=== PATIENT | female | born 1990 | race African-American/Black ===

== ENCOUNTER 2017-02-07 14:48 | Emergency (ER) | payer OTHER ==
[~2017-02-07] VITALS: Ht 165.1 cm; Wt 68.0 kg
[2017-02-07 15:39] VITALS: BP_SYST 128
--- NOTE | 2017-02-07 15:48 | NUR ---
Pt complains of pain to lower abdomen that radiates up to the left flank since Monday. Pt states she had called her OBGYN and told her about the pain, and was recommended to visit ER. Pt states the pain had gotten worse throughout the week and today she was feeling nauseous and vomited x 2. Pt denies fever. No other injuries/complaints per patient or noted.
--- NOTE | 2017-02-07 16:00 | NUR ---
Pt was placed in waiting room, awaiting results from LAB and Radiology. Pt in stable condition. Report given to Triage Nurse. All care endorsed to Triage nurse.
[2017-02-07 16:03] LABS: BILIRUBIN,URINE NEGATIVE (NEGATIVE); BLOOD, URINE 2+ (NEGATIVE); CLARITY/URINE CLEAR (CLEAR); COLOR,URINE YELLOW (YELLOW); GLUCOSE,URINE NEGATIVE (NEGATIVE); KETONES,URINE 3+ (NEGATIVE); LEUKOCYTE ESTERASE ,URINE NEGATIVE (NEGATIVE); NITRITE, URINE NEGATIVE (NEGATIVE); PROTEIN URINE TRACE (NEGATIVE); UROBILINOGEN,URINE 0.2 (0.2-1.0)
[2017-02-07 16:04] LABS: BASOPHILS % (AUTO) 0.7 % (0.0-2.0); EOSINOPHILS # (AUTO) 0.1 K/uL (0.0-0.4); EOSINOPHILS % (AUTO) 1.6 % (0.0-4.0); HEMATOCRIT 38.2 % (36-48); HEMOGLOBIN 12.1 g/dL (12.0-16.0); LYMPHOCYTES % (AUTO) 29.6 % (20.5-51.5); MEAN CORPUSCULAR HEMOGLOBIN 26 pg (27-31); MEAN CORPUSCULAR HGB CONC 32 % (32-36); MEAN CORPUSCULAR VOLUME 83 fL (79.0-98.0); MONOCYTES # (AUTO) 0.6 K/uL (0.0-1.0); MONOCYTES % (AUTO) 8.6 % (1.7-9.3); NEUTROPHILS # (AUTO) 4.1 K/uL (1.8-7.7); NEUTROPHILS % (AUTO) 59.5 % (40.0-70.0); PLATELET COUNT (AUTO) 255 K/uL (130-430); RED BLOOD CELL COUNT(AUTO) 4.63 MIL/uL (4.2-6.2); RED CELL DISTRIBUTION WIDTH 14.5 % (9.0-15.0); WHITE BLOOD COUNT (AUTO) 6.8 K/uL (4.8-10.8)
[2017-02-07 16:18] LABS: CALCIUM 9.6 mg/dL (8.4-11.0); CREATININE 0.65 mg/dL (0.55-1.30); POTASSIUM 3.6 mmol/L (3.5-5.1)
[2017-02-07 16:23] LABS: TOTAL BILIRUBIN 0.3 mg/dL (0.0-1.0)
[2017-02-07 16:51] LABS: BACTERIA,URINE FEW /HPF (None Seen); RBC,URINE 20-50 /HPF (0-3); WBC,URINE 0-3 /HPF (0-3)
--- NOTE | 2017-02-07 17:30 | NUR ---
Returned from ultrasound awaiting reports denies complaints at this time
--- NOTE | 2017-02-07 18:00 | NUR ---
No s/s of distress at this time awaiting MD foss family with patient denies complaints at this time
--- NOTE | 2017-02-07 20:00 | NUR ---
Patient to ER bed 7 to gown for evaluation. Side rails up. Report given to Meño LOBATO.
--- NOTE | 2017-02-07 20:10 | NUR ---
Pt states that she has had abd pain that radiates to left flank for about a week. Pt has nausea and vomitting. Will continue to monitor. No distress noted.
[2017-02-07 20:41] VITALS: BP_SYST 124
--- NOTE | 2017-02-07 20:41 | NUR ---
Patient given written and verbal discharge instructions and verbalizes understanding. ER MD discussed with patient the results and treatment provided. Patient in stable condition. ID arm band removed. Rx of Zofran and Macrobid given. Patient educated on pain management and to follow up with PMD. Pain Scale 0/10. Opportunity for questions provided and answered.
== END 2017-02-07 20:41 | disposition home or self-care (01) ==
LOC: SED 14:48
DX: O23.41 Unspecified infection of urinary tract in pregnancy, first trimester (principal); Z3A.08 8 weeks gestation of pregnancy; Z90.49 Acquired absence of other specified parts of digestive tract
CPT/HCPCS: 36415; 76700-TC; 76801; 76817; 80053; 81000-TC; 81025; 84702-TC; 85025; 86901; 99285

== ENCOUNTER 2017-09-08 12:30 | Inpatient (IN) | payer OTHER ==
[~2017-09-08] VITALS: Ht 165.1 cm; Wt 87.1 kg
[2017-09-08] MEDS: LR 1,000 ML IV SCH (07:00)
[2017-09-08] MEDS ORDERED: LR 1,000 ML IV ONE (13:19)
[2017-09-08] MEDS ORDERED: TERBUTALINE SULFATE 1 MG/ML VIAL SUBCUT ONE (13:40)
[2017-09-08] MEDS ORDERED: TERBUTALINE SULFATE 1 MG/ML VIAL ONE (13:42)
[2017-09-08] MEDS ORDERED: CEFAZOLIN 2 GM IVPB PREMIX 50 ML IV ONE ×2 (14:00)
[2017-09-08] MEDS ORDERED: LR 1,000 ML IV.SOLN IV ONE (14:00)
[2017-09-08] MEDS ORDERED: NS IRRIG SOLN 1000 ML IR ONE (14:00)
[2017-09-08] MEDS ORDERED: BUPIVACAINE /DEX PF 0.75% SPINAL 2 ML AMP INJ ONE (14:00)
[2017-09-08] MEDS ORDERED: ONDANSETRON HCL 4 MG/2 ML VIAL IVP ONE (14:00)
[2017-09-08] MEDS ORDERED: OXYTOCIN 10 UNIT/ML VIAL IV ONE (14:00)
[2017-09-08] MEDS ORDERED: MORPHINE SULFATE 10MG/10ML PF AMP EP ONE (14:00)
[2017-09-08 14:23] LABS: BILIRUBIN,URINE NEGATIVE (NEGATIVE); BLOOD, URINE 2+ (NEGATIVE); CLARITY/URINE CLEAR (CLEAR); COLOR,URINE YELLOW (YELLOW); GLUCOSE,URINE NEGATIVE (NEGATIVE); KETONES,URINE NEGATIVE (NEGATIVE); LEUKOCYTE ESTERASE ,URINE TRACE (NEGATIVE); NITRITE, URINE NEGATIVE (NEGATIVE); PH,URINE 7.5 (5.0-8.0); PROTEIN URINE NEGATIVE (NEGATIVE); UROBILINOGEN,URINE 0.2 (0.2-1.0)
[2017-09-08 14:37] LABS: BASOPHILS % (AUTO) 0.6 % (0.0-2.0); EOSINOPHILS # (AUTO) 0.1 K/uL (0.0-0.4); EOSINOPHILS % (AUTO) 0.7 % (0.0-4.0); HEMATOCRIT 38.1 % (36-48); HEMOGLOBIN 12.5 g/dL (12.0-16.0); LYMPHOCYTES # (AUTO) 2.1 K/uL (1.0-5.5); LYMPHOCYTES % (AUTO) 25.5 % (20.5-51.5); MEAN CORPUSCULAR HEMOGLOBIN 29 pg (27-31); MEAN CORPUSCULAR HGB CONC 33 % (32-36); MEAN CORPUSCULAR VOLUME 87 fL (79.0-98.0); MONOCYTES # (AUTO) 0.6 K/uL (0.0-1.0); MONOCYTES % (AUTO) 7.5 % (1.7-9.3); NEUTROPHILS # (AUTO) 5.4 K/uL (1.8-7.7); NEUTROPHILS % (AUTO) 65.7 % (40.0-70.0); PLATELET COUNT (AUTO) 151 K/uL (130-430); RED BLOOD CELL COUNT(AUTO) 4.36 MIL/uL (4.2-6.2); RED CELL DISTRIBUTION WIDTH 12.9 % (9.0-15.0); WHITE BLOOD COUNT (AUTO) 8.2 K/uL (4.8-10.8)
[2017-09-08 14:45] LABS: BACTERIA,URINE FEW /HPF (None Seen); RBC,URINE 0-3 /HPF (0-3); WBC,URINE 0-3 /HPF (0-3)
[2017-09-08 14:46] LABS: MUCUS,URINE None Seen /LPF (None Seen)
[2017-09-08] MEDS ORDERED: NALOXONE HCL 1 MG in NACL 0.9% 1,000 ML IV PRN ×4 (15:03)
[2017-09-08] MEDS ORDERED: LR 1,000 ML IV SCH (15:03)
[2017-09-08] MEDS ORDERED: HYDROmorphone 1 MG INJ. 1 MG/ML AMPUL IVP PRN (15:15)
[2017-09-08] MEDS ORDERED: KETOROLAC TROMETHAMINE 60 MG/2 ML VIAL IM PRN (15:15)
[2017-09-08] MEDS ORDERED: DIPHENHYDRAMINE HCL 50 MG CAPSULE PO PRN (15:15)
[2017-09-08] MEDS ORDERED: ONDANSETRON HCL 4 MG/2 ML VIAL IVP PRN (15:15)
[2017-09-08] MEDS ORDERED: NALOXONE HCL 0.4 MG/ML AMP (NARCAN) IVP PRN ×3 (15:15)
[2017-09-08] MEDS ORDERED: DIPHENHYDRAMINE INJ 50 MG/ML VIAL IVP PRN (15:15)
[2017-09-08] MEDS ORDERED: MEPERIDINE HCL/PF 25 MG/ML DISP.SYRIN IVP PRN ×2 (15:15)
[2017-09-08] MEDS ORDERED: HYDROmorphone 2 MG/ML VIAL IVP PRN ×2 (15:15)
[2017-09-08] MEDS ORDERED: OXYTOCIN/0.9 % SODIUM CHLORIDE 1,000 ML IV ONE (15:57)
[2017-09-08] MEDS ORDERED: LANOLIN 7 GM OINT. TP PRN (16:00)
[2017-09-08] MEDS ORDERED: ANUSOL 1 EA SUPP.RECT (PREPARATION H) RC PRN (16:00)
[2017-09-08] MEDS ORDERED: MEASLES,MUMPS&RUBELLA VACC/PF 12500 UNIT/0.5 ML VIAL SUBQ PRN (16:00)
[2017-09-08] MEDS ORDERED: RHO(D) IMMUNE GLOBULIN/MALTOSE 1500 UNITS/1.3 ML (WINHRO) IM PRN (16:00)
[2017-09-08] MEDS ORDERED: SENNOSIDES/DOCUSATE SODIUM 1 TAB TABLET(SENOKOT-S) PO PRN (16:00)
[2017-09-08] MEDS ORDERED: OXYCODONE/ACETAMINOPHEN 5-325 TABLET PO PRN ×2 (16:00→18:15)
[2017-09-08] MEDS ORDERED: DIPH-TET-PERTUS Vaccine 0.5 ML VIAL (ADACEL) I.M. PRN (16:00)
[2017-09-08] MEDS ORDERED: BISACODYL 10 MG/SUPPOSITORY RC PRN (16:00)
[2017-09-08] MEDS ORDERED: DIPHENHYDRAMINE INJ 50 MG/ML VIAL ONE (16:43)
[2017-09-08 18:52] VITALS: BP_SYST 123
[2017-09-08] MEDS ORDERED: TEMAZEPAM 15 MG CAPSULE PO PRN (21:00)
[2017-09-09] MEDS: LR 1,000 ML IV SCH
[2017-09-09] MEDS: IBUPROFEN 600 MG TABLET PO SCH ×4 (06:00→23:55)
[2017-09-09] MEDS ORDERED: AMPICILLIN SODIUM 2 GM VIAL ONE (06:40)
[2017-09-09] MEDS ORDERED: ACETAMINOPHEN 500 MG TABLET ONE (06:42)
[2017-09-09] MEDS ORDERED: GENTAMICIN 120 mg/100 mL NS 100 ML IV ONE (07:00)
[2017-09-09] MEDS ORDERED: ACETAMINOPHEN 500 MG TABLET PO ONE (07:00)
[2017-09-09] MEDS ORDERED: CLINDAMYCIN 900 MG in D5W 100 ML IV SCH (07:00)
[2017-09-09] MEDS ORDERED: ACETAMINOPHEN 325 MG TABLET PO PRN (07:00)
[2017-09-09] MEDS ORDERED: CLINDAMYCIN 900 mg/50mL D5W 50 ML IV ONE (07:42)
[2017-09-09 08:06] LABS: BASOPHILS % (AUTO) 0.1 % (0.0-2.0); EOSINOPHILS # (AUTO) 0.1 K/uL (0.0-0.4); EOSINOPHILS % (AUTO) 0.3 % (0.0-4.0); HEMATOCRIT 28.9 % (36-48); HEMOGLOBIN 9.6 g/dL (12.0-16.0); LYMPHOCYTES # (AUTO) 1.6 K/uL (1.0-5.5); LYMPHOCYTES % (AUTO) 8.5 % (20.5-51.5); MEAN CORPUSCULAR HEMOGLOBIN 29 pg (27-31); MEAN CORPUSCULAR HGB CONC 33 % (32-36); MEAN CORPUSCULAR VOLUME 87 fL (79.0-98.0); MONOCYTES # (AUTO) 1.1 K/uL (0.0-1.0); NEUTROPHILS # (AUTO) 15.6 K/uL (1.8-7.7); NEUTROPHILS % (AUTO) 85.1 % (40.0-70.0); PLATELET COUNT (AUTO) 126 K/uL (130-430); RED BLOOD CELL COUNT(AUTO) 3.33 MIL/uL (4.2-6.2); RED CELL DISTRIBUTION WIDTH 12.7 % (9.0-15.0); WHITE BLOOD COUNT (AUTO) 18.4 K/uL (4.8-10.8)
[2017-09-09] MEDS: DOCUSATE SODIUM 100 MG CAPSULE PO PRN ×2 (12:16→21:16)
[2017-09-09] MEDS: AMPICILLIN SODIUM 2 GM in NS 100 ML IV SCH ×3 (13:00→23:55)
[2017-09-09] MEDS: CLINDAMYCIN 900 mg/50mL D5W 50 ML IV SCH ×2 (14:23→23:08)
[2017-09-09] MEDS ORDERED: DIPHENHYDRAMINE INJ 50 MG/ML VIAL IVP PRN (14:45)
[2017-09-09] MEDS: GENTAMICIN 80 mg/100 mL NS 100 ML IV SCH (17:57)
[2017-09-09] MEDS: SIMETHICONE 80 MG TAB.CHEW PO PRN (21:18)
[2017-09-10] MEDS: GENTAMICIN 80 mg/100 mL NS 100 ML IV SCH (02:00)
[2017-09-10] MEDS: AMPICILLIN SODIUM 2 GM in NS 100 ML IV SCH (06:00)
[2017-09-10] MEDS: CLINDAMYCIN 900 mg/50mL D5W 50 ML IV SCH (07:02)
[2017-09-10] MEDS: SIMETHICONE 80 MG TAB.CHEW PO PRN ×3 (10:07→21:44)
[2017-09-10] MEDS: DOCUSATE SODIUM 100 MG CAPSULE PO PRN ×2 (10:07→21:43)
[2017-09-10] MEDS: IBUPROFEN 600 MG TABLET PO SCH ×3 (12:08→23:58)
[2017-09-11] MEDS: IBUPROFEN 600 MG TABLET PO SCH (06:00)
[2017-09-11 08:28] LABS: BASOPHILS % (AUTO) 0.1 % (0.0-2.0); EOSINOPHILS # (AUTO) 0.4 K/uL (0.0-0.4); EOSINOPHILS % (AUTO) 2.9 % (0.0-4.0); HEMATOCRIT 27.9 % (36-48); HEMOGLOBIN 9.6 g/dL (12.0-16.0); LYMPHOCYTES # (AUTO) 1.8 K/uL (1.0-5.5); LYMPHOCYTES % (AUTO) 14.3 % (20.5-51.5); MEAN CORPUSCULAR HEMOGLOBIN 30 pg (27-31); MEAN CORPUSCULAR HGB CONC 34 % (32-36); MEAN CORPUSCULAR VOLUME 86 fL (79.0-98.0); MONOCYTES # (AUTO) 0.8 K/uL (0.0-1.0); MONOCYTES % (AUTO) 6.1 % (1.7-9.3); NEUTROPHILS # (AUTO) 9.4 K/uL (1.8-7.7); NEUTROPHILS % (AUTO) 76.6 % (40.0-70.0); PLATELET COUNT (AUTO) 163 K/uL (130-430); RED BLOOD CELL COUNT(AUTO) 3.23 MIL/uL (4.2-6.2); RED CELL DISTRIBUTION WIDTH 12.5 % (9.0-15.0); WHITE BLOOD COUNT (AUTO) 12.4 K/uL (4.8-10.8)
== END 2017-09-11 11:00 | disposition home or self-care (01) | DRG 765 ==
LOC: SPU 12:30 → OBSVTOIN 12:30 → SPU 16:23
PROVIDERS: ADMIT Obstetrics & Gynecology; ATTEND Obstetrics & Gynecology
PROC: 10D00Z1 Extraction of Products of Conception, Low, Open Approach (ICD-10-PCS; principal; 2017-09-08 13:00)
DX: O32.1XX0 Maternal care for breech presentation, not applicable or unspecified (principal); O41.1230 Chorioamnionitis, third trimester, not applicable or unspecified; O86.4 Pyrexia of unknown origin following delivery; O76 Abnormality in fetal heart rate and rhythm complicating labor and delivery; O99.02 Anemia complicating childbirth; O32.9XX0 Maternal care for malpresentation of fetus, unspecified, not applicable or unspecified; D64.9 Anemia, unspecified; Z3A.38 38 weeks gestation of pregnancy; Z37.0 Single live birth
CPT/HCPCS: 36415; 80170-TC; 81000-TC; 81002-TC; 85025; 86592; 86886; 86900; 86901; 87040-TC; 87086; 94760; J0290; J0690; J1200; J1580; J2274; J2310; J2405; J2590; J3105; J3490; J7030; J7060; J7120